=== PATIENT | female | born 1960 | race Caucasian/White ===

== ENCOUNTER → 2018-02-25 | Day surgery (SDC) | payer OTHER ==
[~2018-02-25] MED LIST: ACETAMINOPHEN 325 MG TAB ONE; ALBU8I INH; AMLO5TAB22 PO; ENAL20TA PO; LACTATED RINGER'S 1000 ML INJ 1,000 ML ONE; LIDOCAINE HCL 1% 50 ML VIAL ONE; METO50TA PO; MIDAZOLAM HCL 2 MG/2 ML VIAL ONE; PROPOFOL 200 MG/20 ML AMP IV ONE; SIMV20 PO; TRIAMCINOLONE ACETONIDE 40 MG/ML VIAL ONE; VARE1 PO; Z.0.COMMODE-3:1; Z.0.WALKERFRONT
--- NOTE | 2018-02-25 13:50 | TN ---
cc: Jordy Alicea MD DATE OF SURGERY: 02/25/2018 DATE OF OPERATION: 02/25/2018 PREOPERATIVE DIAGNOSES: 1. Right hip osteoarthritis. 2. Right hip arthrogryposis (hip stiffness). POSTOPERATIVE DIAGNOSES: 1. Right hip osteoarthritis. 2. Right hip arthrogryposis (hip stiffness). PROCEDURE PERFORMED: Right hip manipulation, intraarticular steroid injection, fluoroscopic guidance of needle anesthesia. SURGEON: Jordy Mancia MD PAIN MANAGEMENT NURSE PRACTITIONER: Staff. ANESTHESIA: General. COMPLICATION: None. SPECIMENS: None. ESTIMATED BLOOD LOSS: None. PLAN OF ACTIVITY: Per orders. PROCEDURE IN DETAIL: The patient was brought into the operating room, had satisfactory general anesthesia by the Department of Anesthesia. Right hip and lower extremity was then prepped and draped in the usual sterile manner. Under fluoroscopic guidance, 18-gauge spinal needle was introduced into the right hip joint. The hip was injected with 5 mL of 1% plain lidocaine and 1 mL of Kenalog, 40. The needle was withdrawn. Hip was manipulated anesthesia. Flexion was 110 degrees. Abduction was to 30 degrees. The patient had mild to moderate restricted rotation. Bandage was placed over the injection site. The patient tolerated the procedure well and went to the recovery room in stable satisfactory condition. X-ray right hip 1 view AP status post right hip manipulation: No obvious fracture, dislocation, subluxation. Right hip osteoarthritis. Satisfactory placement of 18 gauge spinal needle, right hip joint. Jordy Alicea MD AWG/KD , 01:34 PM , 01:48 PM
== END | disposition home or self-care (01) ==
LOC: ESDC 11:35
PROVIDERS: ATTEND Orthopaedic Surgery Orthopaedic Surgery of the Spine
DX: M16.11 Unilateral primary osteoarthritis, right hip (principal); Q68.8 Other specified congenital musculoskeletal deformities
CPT/HCPCS: 01200; 27275; 73501; 76000; J2250; J3010; J3301; J7120

== ENCOUNTER 2018-08-18 14:00 | Inpatient (IN) ==
[2018-08-21] MEDS ORDERED: Metoprolol Tartrate 25 MG Tablet PO ONE (06:15)
[2018-08-21] MEDS ORDERED: Sodium Chlor 0.9% Inj 500 ML IV.CONT ONE (06:15)
[2018-08-21] MEDS ORDERED: Chlorhexidine Gluconate 2% 1 Pack (2 Cloths) TOPICAL ONE (06:15)
[2018-08-21] MEDS ORDERED: ceFAZolin 2 GM Premix Inj 2 GM/50 ML PIGGYBACK IV.SIG ONE (06:36)
[2018-08-21] MEDS ORDERED: Bupivacaine/Dextrose 0.75% Inj 2 ML Ampul ONE (06:42)
[2018-08-21] MEDS ORDERED: Propofol Inj 500 MG/50 ML Vial ONE (06:42)
[2018-08-21] MEDS ORDERED: Chlorhexidine 4% Topical 120 APPLIC/120 ML Bottle TOPICAL SCH (06:45)
[2018-08-21] MEDS ORDERED: ceFAZolin 2 GM Premix Inj 2 GM/50 ML PIGGYBACK IV.SIG SCH (07:00)
[2018-08-21] MEDS ORDERED: Vancomycin Inj 1,000 MG in Sodium Chlor 0.9% Inj 250 ML IV.SIG SCH (07:00)
[2018-08-21] MEDS ORDERED: Labetalol HCl Inj 100 MG/20 ML Vial ONE (07:02)
[2018-08-21] MEDS ORDERED: Sodium Chlor 0.9% Inj 250 ML ONE (07:08)
[2018-08-21] MEDS ORDERED: Tranexamic Acid Inj 1,000 MG/10 ML Ampul ONE (07:20)
[2018-08-21] MEDS ORDERED: Tranexamic Acid Inj 1,000 MG in Sodium Chlor 0.9% Inj 100 ML IV.SIG SCH (08:00)
[2018-08-21] MEDS ORDERED: Post-op Orders (for Pharmacy) OTHER STA (08:55)
[2018-08-21] MEDS ORDERED: Bisacodyl 10 MG Supp RECTAL PRN (08:55)
--- NOTE | 2018-08-21 09:01 | P.DCO ---
- Physical Therapy Physical Therapy: Gait training, Transfer training, bed to chair Hip: Total hip, Protocol: Right, Posterior hip precautions Canvas Knee Splint: When in bed with 2 pillows between thighs Right Lower Extremity Weight Bearing: Weight bearing as tolerated Left Lower Extremity Weight Bearing: Weight bearing as tolerated - Nursing RN: 3 days/week x 2 weeks Nursing: Dressing changes (clean incision with alcohol and apply dry sterile dressing daily ) Additional instructions: aspirin 81 mg bid x 4 weeks dvt prop wear knee high TEDS during day time x 4 weeks, may take off at night time we remove sutures in office - Certification Need for Home Health services: I have seen patient Cori Su on 08/21/18. My clinical findings support the need for the requested home health care services because: Need for Home Health Services: Deconditioned with increased weakness Homebound Certification: I certify that my clinical findings support that this patient is homebound because: Homebound Certification: Post-op weakness
--- NOTE | 2018-08-21 09:08 | P.OP ---
- Preoperative Diagnosis (1) Avascular necrosis of bone of right hip (2) Osteoarthritis of right hip - Postoperative Diagnosis (1) Avascular necrosis of bone of right hip (2) Osteoarthritis of right hip Date of procedure: 08/21/18 Procedure: Right total hip arthroplasty, posterior exposure Anesthesia: GETA Surgeon: Buddy Alicea MD Nc Manager: Jordy Alicea Pathology: other (Femoral head) Operation and Findings: EBL: 200 cc INDICATION: This patient is a 57-year-old female status post previous left total hip replacement doing well. She has evidence of severe osteoarthritis of the right hip. She is developing signs likely consistent with avascular necrosis. She presents for surgical treatment. NOTE: Jordy Alicea MD was present for the entire surgical procedure as my clerical dentist assistant. In my medical opinion his skill and care was necessary for the proper management of this patient. COMPONENTS: COMPANY: [employer] CUP: Ulysses, 52 mm, 100 series STEM: Size 5, high offset, Ventura pressfit HEAD: Ceramic, 32 mm, +1 10/03 taper ALTRX: 32, neutral PROCEDURE: This patient was brought to the operating room and anesthetized in the supine position and positioned on the routine table in the clean air suite. The patient was then rolled to a right side up lateral position and held with a Biomet hip positioner. The hip and leg was scrubbed with alcohol followed by Hibiclens followed by chloro prep and draped sterilely. A timeout was done and antibiotics were given within a routine time window. A 4 inch incision was made starting along the posterior one third of the greater trochanter. The iliotibial band was opened in line with the incision. The Charnley retractors were positioned. The posterior capsule and external rotators were taken down together in a sleeve. The neck was cut at the right location. The head was removed from the wound. The acetabulum was inspected. Deep retractors were positioned. The acetabulum was deepened down to the floor and started with a proper size reamer and reaming up to 51 mm. This was trialed with the same size trial. The overall fit was satisfactory. The rim was touched with the next size reamer. The cup was placed in approximately 40 of abduction and 30 of forward flexion. The final liner was positioned. Retractors were positioned allowing good visualization of the proximal femur. A box osteotome was utilized followed by a taper pin reamer followed by progressive broaching for the Ventura stem. This was reamed and broached and eventually advanced to a size 5 stem. A trial reduction showed satisfactory stability. Offset was satisfactory. Leg length was reestablished. At 90 of flexion it was stable to 50 of internal rotation. The hip could not be subluxed anteriorly. The final stem was inserted in approximately 15 of anteversion. The final head was impacted. The hip was reduced and stability, offset and leg length was as previously noted. The posterior capsule and external rotators were repaired through bone with interrupted #2 Tycron sutures. The piriformis muscle was repaired with the same. The iliotibial band with interrupted #1 Vicryl sutures. Subcutaneous tissue was approximated with 2-0 Vicryl suture and skin with running intradermal 3-0 Vicryl followed by Steri-Strips and benzoin. A sterile dressing was applied.. The sponge count needle counts and instrument counts were all correct. The patient was awakened and taken to the recovery room in satisfactory condition FINDINGS: There was severe changes of the femoral head and there had been a fracture in the region of what appeared to be avascular necrosis with global collapse. A culture was sent. The Gram stain was negative for evidence of infection. There was no clinical appearance of infection. The femoral head was sent to pathology for further analysis. The final solution appeared to be excellent
[2018-08-21] MEDS ORDERED: Morphine Sulfate Inj 2 MG/ML Vial IV.PUSH PRN (09:15)
[2018-08-21] MEDS ORDERED: fentaNYL Citrate Inj 100 MCG/2 ML Ampul ONE (09:34)
[2018-08-21] MEDS ORDERED: *Meperidine Inj 25 MG/ML Vial PERIprocedural Use ONLY ONE (09:38)
--- NOTE | 2018-08-21 09:51 | P.CONIM ---
History of Present Illness Consult date: 08/21/18 Reason for Consult: Medical Management Primary Care Provider: Fidel Law DO History of Present Illness: Mrs. Su is a pleasant 57 y/o female with HTN, hyperlipidemia, and osteoarthritis and avascular necrosis of the right hip. [place] [facility] [place] for elective right total hip arthroplasty with Dr. Alicea. She had a previous left total hip arthroplasty in 2016 and did well post-operatively at that time. Pt was seen post-operatively today and is doing well. She is conversive and denies any significant pain. She does not have a Groves catheter. Pt reports that she plans to go home tomorrow. Denies any chest pain, SOB, palpitations, abd pain, nausea/vomiting, reflux or dysphagia. Past Medical Hx HTN Osteoarthritis Asthma, PFTs on 06/24/18 noted severe obstruction Hep C Hyperlipidemia NITZA 2D echo (06/24/18): - Mild concentric LVH - Estimated EF 60-65% - Grade 1 diastolic dysfunction - Mild thickening of mitral valve leaflets, mild mitral valve regurg - Estimated PA pressure 24.3mmHg Past Surgical Hx Wrist fx repair clavicle and foot fx repair Left [facility] in 2016 Family Hx: Noncontributory Social Hx: Denies any current tobacco use. Pt with hx of tobacco use, quit 3 years ago. Occasional social alcohol use PMF Social History Social History Substance History: No History of Abuse Second Hand Smoke Exposure: No Smoking Status: Former smoker How Often Do You Have a Drink Containing Alcohol: 4 or more times a week Recent Travel in [facility] within the Last 8 Weeks: No Recent Out of Country Travel within the Last 8 Weeks: No Medications and Allergies Allergies Allergy/AdvReac Type Severity Reaction Status Date / Time No Known Allergies Allergy Verified 08/21/18 06:28 Home Medications Medication Instructions Recorded Confirmed Type amlodipine 5 mg PO DAILY 08/20/18 08/21/18 History cholecalciferol (vitamin D3) 1,000 unit PO DAILY 08/20/18 08/21/18 History [Vitamin D3] enalapril maleate 20 mg PO BID 08/20/18 08/21/18 History metoprolol tartrate 50 mg PO BID 08/20/18 08/21/18 History simvastatin 20 mg PO QPM 08/20/18 08/21/18 History albuterol sulfate [Ventolin HFA] 2 puff INHALATION Q4-6H PRN 08/21/18 08/21/18 History aspirin 81 mg PO DAILY 08/21/18 08/21/18 History fluticasone-salmeterol [AirDuo 1 puff INHALATION BID 08/21/18 08/21/18 History RespiClick] Active Medications: Active Medications Hydrocodone Bitart/Acetaminophen ([place] 7.5/325) 1 tab PO Q4H PRN PRN Reason: PAIN LESS THAN 5 ON SCALE Hydrocodone Bitart/Acetaminophen ([place] 7.5/325) 2 tab PO Q6H PRN PRN Reason: PAIN SCALE 5 TO 10 Al Hydroxide/Mg Hydroxide (Milk Of Olivia Torres) 30 ml PO BID PRN PRN Reason: Mild Constipation Amlodipine Besylate (Norvasc) 5 mg PO DAILY [facility] Aspirin (Aspirin Chew) 81 mg PO BID [facility] Bisacodyl (Dulcolax Supp) 10 mg RECTAL DAILY PRN PRN Reason: SEVERE CONSITIPATION Chlorhexidine Gluconate (Hibiclens 4% Topical) 1 applicatio TOPICAL ONCE [facility] Stop: 08/25/18 06:44 Enalapril Maleate (Vasotec) 20 mg PO BID [facility] Fluticasone Propionate (Flovent Hfa 220 Mg Inh) 1 puff INH BID [facility] Lactated Ringer's (Lr 1000 Ml Inj) 1,000 mls @ 30 mls/hr IV.CONT .Q24H ONE Stop: 08/22/18 06:14 Last Admin: 08/21/18 06:45 Dose: 30 mls/hr Sodium Chloride (Ns Inj) 500 mls @ 30 mls/hr IV.CONT .[id number] ONE Stop: 08/21/18 22:54 Last Admin: 08/21/18 07:09 Dose: Not Given Cefazolin Sodium/Dextrose (Ancef 2 Gm Premix Inj) 2 gm in 50 mls @ 100 mls/hr IV.SIG ONCE [facility] Stop: 08/21/18 21:00 Last Infusion: 08/21/18 08:15 Dose: Infused Vancomycin HCl 1,000 mg/ (Sodium Chloride) 250 mls @ 250 mls/hr IV.SIG QUALITY CONTROL DIRECTOR [facility] Stop: 08/24/18 06:34 Last Infusion: 08/21/18 08:15 Dose: Infused Tranexamic Acid 1,000 mg/ (Sodium Chloride) 110 mls @ 200 mls/hr IV.SIG ONCE [facility] Stop: 08/21/18 14:00 Last Infusion: 08/21/18 08:15 Dose: Infused Cefazolin Sodium/Dextrose (Ancef 1 Gm Premix Inj) 1 gm in 50 mls @ 100 mls/hr IV.SIG Q6H [facility] Stop: 08/22/18 01:29 Lactulose (Lactulose Liq) 30 ml PO DAILY PRN PRN Reason: SEVERE CONSITIPATION Metoprolol Tartrate (Lopressor) 50 mg PO BID [facility] Morphine Sulfate (Morphine Inj) 2 mg IV.PUSH Q3H PRN PRN Reason: BREAKTHROUGH PAIN Ondansetron HCl (Zofran Odt) 4 mg PO Q6H PRN PRN Reason: NAUSEA OR VOMITING Pravastatin Sodium (Pravachol) 40 mg PO QPM [facility] Senna/Docusate Sodium (Daniela-Colace) 1 tab PO BID [facility] Sennosides (Senokot) 17.2 mg PO BID PRN PRN Reason: Moderate Constipation Sodium Chloride (Ns Flush) 2 ml IV.FLUSH PRN PRN PRN Reason: FLUSH AFTER USING IV ACCESS Sodium Chloride (Ns Flush) 2 ml IV.FLUSH BID FEI Zolpidem Tartrate (Ambien) 5 mg PO HS PRN PRN Reason: INSOMNIA Physical Exam Vital signs: Last Vital Signs Temp 98.1 F 08/21/18 09:27 Pulse 63 08/21/18 09:27 Resp 18 08/21/18 09:27 BP 130/70 08/21/18 09:27 Pulse Ox 94 L 08/21/18 09:27 Narrative: GENERAL: NAD, AAOx3 SKIN: Warm and dry. Atraumatic. Normocephalic. Pupils equal and round. No scleral icterus. No injection or drainage. No nasal bleeding or discharge. Mucous membranes pink and moist. NECK: Trachea midline. No JVD. CARDIOVASCULAR: Regular rate and rhythm. RESPIRATORY: No accessory muscle use. Clear to auscultation. Breath sounds equal bilaterally. GASTROINTESTINAL: Abdomen soft, non-tender, nondistended. Hepatic and splenic margins not palpable. MUSCULOSKELETAL: Bandages to right posterior hip are c/d/i NEUROLOGICAL: Awake and alert. No obvious cranial nerve deficits. Motor grossly within normal limits. Five out of 5 muscle strength in the arms and legs. Normal speech. PSYCHIATRIC: Appropriate mood and affect; insight and judgment normal. Results Imaging Hip X-Ray 08/21/18 08:52 CONCLUSION: Bilateral hip arthroplasties. No concerning fracture Assessment and Plan Assessment (1) Osteoarthritis of right hip: Code(s): M16.11 - Unilateral primary osteoarthritis, right hip Status: Acute (2) Avascular necrosis of bone of right hip: Code(s): M87.051 - Idiopathic aseptic necrosis of right femur Status: Acute (3) Asthma: Code(s): J45.909 - Unspecified asthma, uncomplicated Status: Chronic (4) HTN (hypertension): Code(s): I10 - Essential (primary) hypertension Status: Chronic (5) Hyperlipidemia: Code(s): E78.5 - Hyperlipidemia, unspecified Status: Chronic Plan Osteoarthritis right hip Avascular necrosis right hip - Pt s/p right total hip arthroplasty on 08/21/[address] Alicea - Post-op pain control per Ortho - PT daily - Constipation precautions - DVT prophylaxis - Supportive care HTN - Home meds continued - Monitor for any necessary adjustments to meds while in the hospital Hyperlipidemia - Cont. home meds Asthma - Cont. home meds - Shonna PRN
--- NOTE | 2018-08-21 10:38 | XR ---
EXAM DATE: 08/21/2018 10:35 AM EDT AGE/SEX: 57 years / Female INDICATIONS: Post op right total hip prosthesis. CLINICAL DATA: This is the patient's initial encounter. Patient reports that signs and symptoms have been present for 1 day and indicates a pain score of 7/10. MEDICAL/SURGICAL HISTORY: None. . lt total hip COMPARISON: [facility], HIP LEFT (AP&LAT 2/3VWS) W AP PELVIS, 12/01/2015. . FINDINGS: Patient's had bilateral total hip arthroplasties. There is no obvious complications. There is no frac ture. No lytic or blastic lesions are identified. CONCLUSION: Bilateral hip arthroplasties. No concerning fracture Electronically signed by: Zak Valdes MD 08/21/2018 10:37 AM EDT
[2018-08-21] MEDS: ceFAZolin 1 GM Premix Inj 1 GM/50 ML IV.SIG SCH ×2 (13:00→19:20)
[2018-08-21] MEDS: Senna/Docusate Sodium 8.6/50 MG Tablet PO SCH ×2 (13:18→20:59)
[2018-08-21] MEDS: Metoprolol Tartrate 50 MG Tablet PO SCH ×2 (13:24→20:59)
[2018-08-21] MEDS: amLODIPine 5 MG Tablet PO SCH (13:24)
--- NOTE | 2018-08-21 16:23 | ECG ---
Date Performed: 08/21/2018 Time Performed: 06:53:49 PTAGE: 57 years EKG: SINUS BRADYCARDIA WITH SINUS ARRHYTHMIA BORDERLINE ECG PREVIOUS TRACING : 11/25/2015 08.59 Since the previous tracing, no significant change noted DOCTOR: Blake Martinez Interpretating Date/Time 08/21/2018 16:22:31
[2018-08-21] MEDS ORDERED: Zolpidem Tartrate 5 MG Tablet PO PRN (21:00)
[2018-08-21] MEDS ORDERED: [UNRECOGNIZED DRUG - OTHER] INH SCH (21:00)
[2018-08-22] MEDS: ceFAZolin 1 GM Premix Inj 1 GM/50 ML IV.SIG SCH (00:17)
[2018-08-22 05:37] LABS: Hematocrit 29.7 % (35.0-46.0); Hemoglobin 10.2 gm/dL (11.6-15.3)
--- NOTE | 2018-08-22 06:49 | P.PNOP ---
Subjective Interval history: pt doing much better, pre operative right hip pain is improved no other complaints this morning Physical Exam Vital signs: Vital Signs 08/21/18 06:59 08/21/18 09:27 08/21/18 09:45 Temperature 98.1 F Pulse Rate 63 62 Respiratory Rate 18 18 Blood Pressure 203/89 H 130/70 163/67 H Pulse Oximetry 94 L 95 08/21/18 10:00 08/21/18 10:16 08/21/18 11:00 Temperature 98 F 98.9 F Pulse Rate 63 60 93 H Respiratory Rate 18 18 17 Blood Pressure 179/56 H 167/75 H 146/71 H Pulse Oximetry 95 95 96 08/21/18 11:30 08/21/18 16:30 08/21/18 19:42 Temperature 97.5 F L 97.8 F 98.7 F Pulse Rate 56 L 62 68 Respiratory Rate 17 18 17 Blood Pressure 168/75 H 166/77 H 149/67 H Pulse Oximetry 99 97 08/21/18 23:45 08/22/18 04:00 08/22/18 05:30 Temperature 98.6 F 99.2 F Pulse Rate 67 68 Respiratory Rate 17 17 Blood Pressure 172/72 H 187/79 H 167/78 H Pulse Oximetry 99 96 Intake & Output 08/21/18 08/21/18 08/22/18 06:59 18:59 06:59 Intake Total 2090 / 2090 700 / 700 Output Total 300 / 300 Balance 1790 / 1790 700 / 700 Weight 95.5 kg 95.5 kg 95.5 kg Intake: IV 460 / 460 100 / 100 Cyklokapron Inj 1,000 MG In NS 110 / 110 Inj 100 ML @ 200 mls/hr IV.SIG ONCE FEI Rx#:[id number] Vancomycin Inj 1,000 MG In NS 250 / 250 Inj 250 ML @ 250 mls/hr IV.SIG PUBLIC HE[employer] SANITARIAN TECHNICIAN FEI Rx#:[id number] Ancef 1 GM Premix Inj 1 gm In 50 / 50 100 / 100 50 ml @ 100 mls/hr IV.SIG Q6H FEI Rx#:[id number] Ancef 2 GM Premix Inj 2 gm In 50 / 50 50 ml @ 100 mls/hr IV.SIG ONCE FEI Rx#:[id number] Oral 240 / 240 600 / 600 Anesthesia Amount 1390 / 1390 Output: Estimated Blood Loss 300 / 300 Other: # Voids 3 Date of Last Bowel Movement 08/19/18 08/19/18 Weight On Admission 95.5 kg Narrative: right hip dressing dry and intact canvas knee splint in place +NVI limb lengths equal no calf tenderness Results - Labs CBC & Chem 7: 08/22/18 04:40 Laboratory Results - last 24 hr 08/21/18 08/22/18 06:35 04:40 Hgb 10.2 L Hct 29.7 L Blood Type A Positive Antibody Screen Negative MTS Gel Crossmatch See Detail Microbiology 08/21/18 08:04 Wound - Hip Gram Stain - Final - Imaging Impressions Hip X-Ray 08/21/18 08:52 CONCLUSION: Bilateral hip arthroplasties. No concerning fracture Assessment and Plan - Problem List (1) Osteoarthritis of right hip Code(s): M16.11 - Unilateral primary osteoarthritis, right hip Status: Acute - Assessment and Plan POD # 1 s/p R HCI PT-WBAT, posterior hip precautions aspirin 81 mg bid x 4 weeks dvt prop escribing anisha moctezuma verified discharge today with [facility], orthopedically stable
[2018-08-22] MEDS: Metoprolol Tartrate 50 MG Tablet PO SCH (09:00)
[2018-08-22] MEDS: amLODIPine 5 MG Tablet PO SCH (09:00)
[2018-08-22 09:53] VITALS: BP 177/79; PULSE 73; RESP 16; TEMP 98.9; O2SAT 97
[2018-08-22] MEDS: Senna/Docusate Sodium 8.6/50 MG Tablet PO SCH (10:26)
== END 2018-08-22 14:19 | disposition home health service (06) ==
LOC: HSDI 08-21 05:49 → N06 08-21 10:42
PROVIDERS: ADMIT Orthopaedic Surgery Orthopaedic Surgery of the Spine; ATTEND Orthopaedic Surgery Orthopaedic Surgery of the Spine
DX: M87.051 Idiopathic aseptic necrosis of right femur; E78.5 Hyperlipidemia, unspecified; G47.33 Obstructive sleep apnea (adult) (pediatric); Z96.642 Presence of left artificial hip joint; F17.210 Nicotine dependence, cigarettes, uncomplicated; M16.11 Unilateral primary osteoarthritis, right hip; I34.0 Nonrheumatic mitral (valve) insufficiency; M89.751 Major osseous defect, right pelvic region and thigh; M84.451A Pathological fracture, right femur, initial encounter for fracture; Z87.891 Personal history of nicotine dependence; I10 Essential (primary) hypertension; J45.909 Unspecified asthma, uncomplicated